=== PATIENT | male | born 1980 | race Caucasian/White ===

== ENCOUNTER 2022-01-30 06:25 | Observation (INO) ==
--- NOTE | 2022-01-13 12:38 | Anesthesiology Consultation ---
Date of Service January 13, 2022 Assessment & Plan (1) Encounter for pre-operative examination: - COVID screening: Per assessment on 01/13: No known COVID-19 positive contacts or current COVID-19 related symptoms. Travel screen negative. Surgeon arranging preop COVID testing. Awaiting results. - Check BSG AM DOS - S/P ACDF C6-7 (07/26/21): Glidescope #3, ETT 8.0 at [facility] Chart Review Chart Review: Acceptable Risk for Surgery and Patient NOT seen in Pre Admission Testing History Surgery Operation Date: 01/21/22 09:35 Proposed Procedures p C5-C6 Anterior Cervical Discectomy and Fusion, C6-C7 Hardware Removal, Spinal Cord Monitoring - Bradley Faustin, Height/Weight Height: 5 ft 8 in Weight: 85.275 kg Allergies Allergy/AdvReac Type Severity Reaction Status Date / Time Sulfa (Sulfonamide Allergy Intermediate Rash Verified 01/13/22 10:38 Antibiotics) Medications Home Medications Medication Instructions Recorded Confirmed Last Taken atorvastatin 20 mg tablet 20 mg PO PM 07/24/21 01/13/22 12/17/21 glimepiride 1 mg tablet 1 mg PO QAM 07/24/21 01/13/22 12/17/21 lisinopril 10 mg tablet 10 mg PO QAM 07/24/21 01/13/22 12/17/21 sitagliptin 50 mg-metformin 1,000 1 tab PO BID 07/24/21 01/13/22 12/17/21 08:00 mg tablet (Janumeелена) Past Medical History Medical History COVID-19 Dx 07/2021 (rapid test but f/u test was negative per pt) DM2 (diabetes mellitus, type 2) Lisinopril and atorvastatin preventatively HLD (hyperlipidemia) Right arm numbness Past Family History Family History Denies family history of Diabetes Heart disease Myocardial infarction Cancer Stroke Past Surgical History Surgical History H/O arthroscopic knee surgery H/O arthroscopy of shoulder History of arthroscopy R/L shoulders Hx of elbow surgery R/L ulnar nerve surgery S/P cervical spinal fusion ACDF C6-7 (07/26/21): Glidescope #3, ETT 8.0 at [facility] Turning to right side and head extension/flexion ROM limitations/significant cervicalgia* Social History Smoking Status: Never smoker Do You Dip or Chew Tobacco: No Hx Alcohol Use: No Hx Substance Use: No substance use type: does not use Lab Results Anesthesia Preop Results Results Anesthesia Widget: WBC 7.63 K/uL (4.8-10.8) 12/17/21 Hgb 18.2 g/dL (14.0-18.0) H 12/17/21 Hct 50.5 % (42-52) 12/17/21 Plt 204 K/uL (130-400) 12/17/21 Na 136 mmol/L (136-145) 12/17/21 K 3.9 mmol/L (3.5-5.1) 12/17/21 Cl 104 mmol/L (98-107) 12/17/21 CO2 23 mmol/L (21-32) 12/17/21 BUN 19 mg/dl (6-23) 12/17/21 Creat 1.20 mg/dl (0.6-1.4) 12/17/21 Glucose Level 153 mg/dl (70-99(Fasting)) H 12/17/21 Testing Electrocardiogram Date: 07/24/21 NSR at 75bpm. TWA, consider inferior ischemia. Echo done 07/24/21 for EKG changes was unremarkable. EKG/Echo was reviewed by Dr. Celaya prior to 07/26/21 ACDF which patient had done without issue* Chest X-Ray Date: 07/24/21 FINDINGS: Single frontal view of the chest demonstrates the cardiomediastinal silhouette to be within normal limits. The lungs are clear of alveolar opacities. There is no evidence for pleural effusion. There is no evidence for vascular congestion. There is no acute osseous pathology. IMPRESSION: No acute cardiopulmonary disease. Echocardiogram Date: 07/24/21 EF 55-60%. No regional motion abnormality. Borderline concentric LVH. No significant valvular disease. Cervical Spine Date: 12/24/[address] (12/24/20): Status post C6-C7 anterior discectomy and fusion. Hardware intact. No acute cervical spine fracture or subluxation. Reversal of the normal cervical lordosis. Otherwise, anatomic alignment of the cervical spine. Central canal and neural foramen better depicted on recent MRI. Cervical spine MRI (12/17/21): Prior discectomy with anterior plate and screw fusion at C6-C7. Mild uncovertebral hypertrophy and discogenic degeneration as above resulting in multilevel neural foraminal narrowing. No significant central canal stenosis. Normal signal of the cervical spinal cord. No abnormal enhancement.
[~2022-01-30 06:25] MED LIST: ACETAMINOPHEN 500 MG TAB PO SCH; GABAPENTIN 900 MG DOSE PO SCH; LACTATED RINGER'S 1,000 ML IV SCH; LR 15ML/HR IV SCH; ceFAZolin 2000MG 2,000 MG/15 ML SYR IV SCH
[2022-01-30] MEDS ORDERED: ATROPINE SULFATE 0.1 MG/ML 10ML SYR IV PRN (07:00)
[2022-01-30] MEDS ORDERED: HYDROmorphone INJ 1 MG/ML SYRINGE IV PRN ×2 (07:00→12:19)
[2022-01-30] MEDS ORDERED: PROMETHAZINE HCL 12.5 MG in SODIUM CHLORIDE 0.9% 50 ML IV PRN ×2 (07:00→12:19)
[2022-01-30] MEDS ORDERED: ONDANSETRON INJ 2 MG/ML 2 ML VIAL IV PRN ×2 (07:00→12:19)
[2022-01-30] MEDS ORDERED: LABETALOL HCL IV 5 MG/ML 20ML IV PRN (07:00)
[2022-01-30] MEDS ORDERED: ONDANSETRON INJ 2 MG/ML 2 ML VIAL ONE (07:09)
[2022-01-30] MEDS ORDERED: PROPOFOL IV EMULSION 10 MG/ML 20 ML VIAL IV ONE ×2 (07:09→08:20)
[2022-01-30] MEDS ORDERED: fentaNYL citrate 100 MCG/2 ML VIAL ONE (07:10)
[2022-01-30] MEDS ORDERED: MIDAZOLAM HCL 1 MG/ML 2ML VIAL ONE (07:13)
[2022-01-30] MEDS ORDERED: DEXAMETHASONE SOD INJ 4 MG/ML VIAL ONE (07:15)
[2022-01-30] MEDS ORDERED: LIDOCAINE 2% 2 ML VIAL/AMP(20MG/ML) INFIL ONE (07:15)
[2022-01-30] MEDS ORDERED: PROPOFOL IV EMULSION 10 MG/ML 100 ML VIAL IV ONE (07:15)
--- NOTE | 2022-01-30 07:27 | History & Physical Bridge Note ---
Date of Service January 30, 2022 History & Physical Bridge Note I have examined the patient, reviewed the History & Physical and in the interval since the performance of the History & Physical I have noted the following changes of clinical significance: no changes noted
--- NOTE | 2022-01-30 07:28 | History & Physical Report ---
Date of Service January 30, 2022 Assessment & Plan (1) Herniation of cervical intervertebral disc with radiculopathy: Plan: Anterior cervical discectomy and fusion C5-C6 hardware removal C6-C7 History of Present Illness Chief Complaint: Neck and arm pain with weakness Primary Care Provider: Rain Medina This is a 41-year-old male who presents with worsening right arm pain and weakness after failed course of nonoperative care is here for surgical invention. Allergies Allergy/AdvReac Type Severity Reaction Status Date / Time Sulfa (Sulfonamide Allergy Intermediate Rash Verified 01/30/22 06:47 Antibiotics) Home Medications Medication Instructions Recorded Confirmed Type atorvastatin 20 mg tablet 20 mg PO PM 07/24/21 01/30/22 History glimepiride 1 mg tablet 1 mg PO QAM 07/24/21 01/30/22 History lisinopril 10 mg tablet 10 mg PO QAM 07/24/21 01/30/22 History sitagliptin 50 mg-metformin 1,000 1 tab PO BID 07/24/21 01/30/22 History mg tablet (Janumet) Past Med/Surg History Medical History COVID-19 Dx 07/2021 (rapid test but f/u test was negative per pt) DM2 (diabetes mellitus, type 2) Lisinopril and atorvastatin preventatively HLD (hyperlipidemia) Right arm numbness Surgical History H/O arthroscopic knee surgery H/O arthroscopy of shoulder History of arthroscopy R/L shoulders Hx of elbow surgery R/L ulnar nerve surgery S/P cervical spinal fusion ACDF C6-7 (07/26/21): Glidescope #3, ETT 8.0 at [facility] Turning to right side and head extension/flexion ROM limitations/significant cervicalgia* Family History Denies family history of Diabetes Heart disease Myocardial infarction Cancer Stroke Social History Smoking Status: Never smoker Second Hand Exposure: No; Do You Dip or Chew Tobacco: No; Tobacco Cessation Education Requested by Patient: No Hx Alcohol Use: No Hx Substance Use: No Preferred Language: Albanian Communication Ability: Effective 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 current occupational status: employed current occupation: [employer] Other Information That Helps Us Care for You: No Feels Safe at Home: Yes Safety Concerns: Feels Safe At This Time Assistive Devices: None Physical Exam Physical Exam: Patient is alert and oriented Heart regular rhythm Lungs clear Results & Data Results & Data ([facility]) Vital Signs (Past 12 Hours) Vital Signs Temp Pulse Resp BP Pulse Ox 01/30/22 06:55 36.6 C 78 22 149/96 H 99
[2022-01-30] MEDS: ceFAZolin 330 MG/ML 1 GM VIAL ONE ×2 (08:01→08:36)
[2022-01-30] MEDS ORDERED: HYDROmorphone INJ 2 MG/ML SYR/VIAL ONE (08:07)
[2022-01-30] MEDS ORDERED: FLOSEAL HEMOSTATIC MATRIX 10ML TOP ONE (08:18)
[2022-01-30] MEDS ORDERED: SUCCINYLCHOLINE CHLORIDE 20 MG/ML 10 ML VIAL IV ONE (08:20)
[2022-01-30] MEDS ORDERED: ROCURONIUM BROMIDE 10 MG/ML 5 ML VIAL IV ONE (08:40)
[2022-01-30] MEDS ORDERED: GLYCOPYRROLATE 0.2 MG/ML VIAL ONE (09:17)
[2022-01-30] MEDS ORDERED: NEOSTIGMINE METHYLSULFATE 1 MG/ML 10ML VIAL ONE (09:17)
--- NOTE | 2022-01-30 09:37 | Operative Report ---
Post Operative Report Pre & Post Diagnosis Operation Date: 01/30/22 07:45 Pre-Op Diagnosis: Cervical spinal stenosis with radiculopathy Post-Op Diagnosis: Same I identified the patient and participated in the time-out.: Yes Procedure Operation Date: 01/30/22 07:45 Actual Procedures #1 removal of anterior cervical plate C6-C7. #2 exploration of fusion C6-C7. #3 anterior cervical discectomy with bilateral foraminotomies C5-C6. #4 anterior cervical arthrodesis C5-C6. #5 placement of 8 mm spiral cage filled with I factor at C5-C6. #6 application of tamayo plate and screws from C5-C7. Surgeon Bradley Faustin, DO Human Resources Compliance Manager Mildred Hernandez Estimated Blood Loss 20 Findings Consistent with Post-Op Diagnosis Specimens None Indications This is a 41 old male known to me presents with marked decline in status and neuro deficit involving the right upper extremity. Failing course of nonoperative care is here for the above-mentioned procedure. Description of Procedure Patient was met with identified informed consent obtained. Patient was then taken to the operative suite underwent ablation placed in the supine position the Deniz table on top of the Eric frame. All bony prominences well-padded eyes inspected to ensure no external pressure placed upon him. This point the anterior cervical spine was prepped and draped in normal sterile fashion. Utilizing the same incision site along the right anterior aspect the cervical spine sharp dissection formed through the skin and blunt dissection with assistance of bipolar electrocautery performed down to and exposing the anterior cervical spine from C5-C7. I exposed the anterior cervical plate at C6-C7. I remove the plate without difficulty. I then placed [place] distracting pins into C6 and C7 to distract across the interbody construct. [place] no motion was noted. It appeared to be a solid fusion. I then proceeded to C5-C6. A complete discectomy was then performed up to the uncovertebral's bilaterally. [place] distracting pins were utilized to assist in visualization. Removed all posterior fibers longitudinal ligament bilateral foraminotomies performed. The endplates were then burred to subcortical any bone and an 8 mm spiral cage filled with I factor tapped in position. Distracting apparatus was removed. All all anterior aspects burred to smooth cortical surface and a tamayo plate and screws applied with the assistance of fluoroscopy. The incision was then copiously irrigated explored to ensure no damage to surrounding structures or remaining bleeding. 10 round KATYA drain was then inserted. Incision was then closed with 2 Vicryl in a fashion of 4 Monocryl for final skin closure. Steri- Strip sterile dressings placed. Patient waken taken to PACU stable condition. Please note spinal cord monitoring was utilized at the procedure no changes noted. Lastly Mildred Hernandez was present at the entire surgery involved the patient positioning complex portions of the surgery and fascial closure. I attest to the content of the Intraoperative Record and any orders documented therein. Any exceptions are noted below.
--- NOTE | 2022-01-30 10:41 | Fluoroscopy Report ---
FL cervical 2-3V CLINICAL HISTORY: ACDF C5-6 REMOVE HARDWARE C6-7 COMPARISON STUDY: CT of the cervical spine December 24, 2021. FLUOROSCOPY TIME: 8 seconds. FLUOROSCOPIC IMAGES: 3 FINDINGS: Interval C5-C6 discectomy with interbody spacer placement is noted. Anterior plate and scre ws from C5 through C7 are noted. Previous C6-C7 discectomy is present. Surgical drain is in place. En dotracheal tube is partially imaged. IMPRESSION: Fluoroscopy provided during hardware removal with interval C5-C6 discectomy and C5-C7 an terior plate and screw fixation. ACT 112: Negative or not required by law. Electronically signed by: Mina Luna M.D. 01/30/2022 10:40 AM
--- NOTE | 2022-01-30 11:37 | Anesthesiology Progress Note ---
Date of Service January 30, 2022 Anesthesia Post Procedure Vital Signs Vital Signs: Temp Pulse Pulse Resp BP Pulse Ox 01/30/22 11:30 86 12 141/92 H 97 01/30/22 11:20 36.4 C L 76 12 166/96 H 98 01/30/22 11:10 74 10 L 155/104 H 98 01/30/22 11:00 82 21 153/102 H 98 01/30/22 10:50 85 16 167/103 H 96 01/30/22 10:40 36.2 C L 82 12 163/97 H 96 01/30/22 10:30 80 16 164/104 H 100 01/30/22 10:20 73 12 160/97 H 100 01/30/22 10:10 86 16 119/95 97 01/30/22 10:04 36.3 C L 82 13 179/121 H 99 01/30/22 06:55 36.6 C 78 22 149/96 H 99 Pain Intensity Right Neck: Pain Intensity: 6 Transfer of Care Handoff Completed per policy Notes Mental Status: alert / awake / arousable Patient Amnestic to Procedure: Yes Nausea / Vomiting: adequately controlled Pain: adequately controlled Airway Patency, RR, SpO2: stable & adequate BP & HR: stable & adequate Hydration State: stable & adequate Anesthetic Complications: no major complications apparent
[2022-01-30] MEDS ORDERED: ONDANSETRON 4 MG OD TAB PO PRN (12:19)
[2022-01-30] MEDS ORDERED: SODIUM CHLORIDE 0.9% 1000ML 1,000 ML IV SCH (12:19)
[2022-01-30] MEDS ORDERED: ACETAMINOPHEN 1,000 MG/100 ML VIAL IV PRN (12:19)
[2022-01-30] MEDS ORDERED: HYDROmorphone INJ 0.5 MG/0.5 ML SYR IV PRN (12:19)
[2022-01-30] MEDS ORDERED: oxyCODONE HCL IR 5 MG TAB (IMMEDIATE RELEASE) PO PRN (12:19)
[2022-01-30] MEDS ORDERED: DO NOT ADMINISTER FLU VACCINE PRN (12:19)
[2022-01-30] MEDS ORDERED: diphenhydrAMINE Capsule 25 MG CAP PO PRN (12:19)
[2022-01-30] MEDS ORDERED: LORazepam 0.5 MG in SYRINGE 0.25 ML IV PRN (12:19)
[2022-01-30] MEDS ORDERED: hydrOXYzine HCl 25 MG TAB PO PRN (12:19)
[2022-01-30] MEDS ORDERED: LORazepam 0.5 MG TAB PO PRN (12:19)
[2022-01-30] MEDS ORDERED: PHARMACY GLYCEMIC MGMT CONSULT PRN (12:19)
[2022-01-30] MEDS ORDERED: bisacodyL 10 MG SUPP PR PRN (12:19)
[2022-01-30] MEDS ORDERED: ALUMINUM/MAGNESIUM SUSP 30 ML UDC PO PRN (12:19)
[2022-01-30] MEDS ORDERED: RACEPINEPHRINE 2.25% NEBU SOLN 0.5 ML VIAL INH PRN (12:19)
[2022-01-30] MEDS ORDERED: dexAMETHasone 8 MG in SYRINGE 0 ML IV PRN (12:19)
[2022-01-30] MEDS ORDERED: NALOXONE HCL 0.4 MG/1 ML VIAL/CARP IV PRN (12:19)
[2022-01-30] MEDS ORDERED: FAMOTIDINE 20 MG TAB PO PRN (12:19)
[2022-01-30] MEDS ORDERED: METOCLOPRAMIDE HCL INJ 5 MG/ML 2 ML VIAL IV PRN (12:19)
[2022-01-30] MEDS ORDERED: MAGNESIUM HYDROXIDE SUSP 30 ML UDC PO PRN (12:19)
[2022-01-30] MEDS ORDERED: traMADol HCL 50 MG TABLET PO PRN (12:19)
[2022-01-30] MEDS ORDERED: DO NOT ADMINISTER PNEUMOCOCCAL VACCINE PRN (12:19)
[2022-01-30] MEDS ORDERED: SOD PHOSPHATE/SOD BIPHOSPHATE ENEMA 132 ML BTL PR PRN (12:19)
[2022-01-30] MEDS ORDERED: DEXTROSE 50% 50 ML SYRINGE IV PRN (12:45)
[2022-01-30] MEDS ORDERED: CARBOHYDRATES FOR HYPOGLYCEMIA PO PRN (12:45)
[2022-01-30] MEDS ORDERED: INSULIN HUMAN NPH SC ONE (12:45)
[2022-01-30] MEDS ORDERED: GLUCOSE 10 TABS/TUBE PO PRN (12:45)
[2022-01-30] MEDS ORDERED: GLUCOSE 40% GEL 15 GM TUBE PO PRN (12:45)
[2022-01-30] MEDS ORDERED: GLUCAGON FOR INJ 1 MG VIAL IM PRN (12:45)
[2022-01-30] MEDS ORDERED: LANTUS PER UNIT CHARGE SQ ONE (13:00)
[2022-01-30] MEDS ORDERED: INSULIN ASPART PER UNIT SC SCH (13:00)
--- NOTE | 2022-01-30 13:03 | Pharmacy Report ---
Pharmacy Glycemic Short Note 2 - Date of Service January 30, 2022 - Glycemic Short BSG Results (Last 24 hours): 01/30/22 01/30/22 01/30/22 06:43 10:18 12:13 POC Glucose 125 H 138 H 162 H OUTPATIENT ANTIDIABETIC REGIMEN: * Janumet 50-1000 mg PO BIDM * Glimepiride 1 mg PO daily HbA1c: 6.1% (07/25/21) ASSESSMENT: * MP is a 41 year old male POD #0 s/p discectomy/fusion * Received 8 mg IV dexamethasone in OR * Ordered dexamethasone 6 mg IV daily ongoing to start tomorrow morning * Well-controlled T2DM with oral medications * Preop BSG of 125 mg/dL and postop BSG of 162 mg/dL * Given uptrend in BSG, will give aggressive Novolog in addition to basal to cover steroid PLAN FOR INPATIENT GLYCEMIC CONTROL: * Hold outpatient oral diabetes medications * Basal insulin * NPH 25 units SC x 1 to cover intra-operative steroids (~0.3 unit/kg) * Bolus insulin * NovoLog per scale ACHS or Q6hrs while NPO * Goal Range: Low 110 mg/dL - High 140 mg/dL * Correction Factor: 20 mg/dL/unit * Nutritional / Prandial insulin per carb ratio of 1 unit per 6 grams CHO consumed
[2022-01-30] MEDS: INSULIN ASPART PER UNIT SC SCH ×3 (13:57→21:16)
[2022-01-30] MEDS ORDERED: lisinopril 10 MG TAB PO STA (15:14)
[2022-01-30] MEDS: ceFAZolin 2000MG 2,000 MG/15 ML SYR IV SCH ×2 (17:16→23:11)
[2022-01-30] MEDS ORDERED: ATORVASTATIN 20 MG TAB PO SCH (21:00)
[2022-01-30] MEDS ORDERED: DOCUSATE SODIUM/SENNA 50/8.6MG TAB PO SCH (21:00)
[2022-01-31] MEDS ORDERED: COUGH DROP (SUGAR FREE) LOZ 24 LOZ/1 BOX BUCCAL ONE (04:00)
[2022-01-31] MEDS: ACETAMINOPHEN 500 MG TAB PO PRN ×2 (04:02→13:24)
[2022-01-31] MEDS: POLYETHYLENE (MIRALAX) 17 GM PACK PO SCH ×2 (05:30→12:14)
[2022-01-31] MEDS: INSULIN ASPART PER UNIT SC SCH (08:43)
[2022-01-31] MEDS ORDERED: GLIMEPIRIDE 2 MG TAB PO SCH (09:00)
[2022-01-31] MEDS ORDERED: lisinopril 10 MG TAB PO SCH (09:00)
[2022-01-31] MEDS ORDERED: INSULIN HUMAN NPH SC ONE ×2 (09:00→09:15)
[2022-01-31] MEDS ORDERED: dexAMETHasone 6 MG in SYRINGE 0 ML IV SCH (09:00)
--- NOTE | 2022-01-31 10:06 | Discharge Summary ---
Date of Service January 31, 2022 Admission HPI Per Admitting Provider This is a 41-year-old male who presents with worsening right arm pain and weakness after failed course of nonoperative care is here for surgical invention. Principal Diagnosis Cervical disc condition with radiculopathy Discharge Data Allergies Allergy/AdvReac Type Severity Reaction Status Date / Time Sulfa (Sulfonamide Allergy Intermediate Rash Verified 01/30/22 06:47 Antibiotics) Procedures Performed Operation Date: 01/30/22 07:45 Actual Procedures p C5-C6 Anterior Cervical Discectomy and Fusion, Spinal Cord Monitoring(Not Applicable) - Bradley Faustin DO s C6-C7 Hardware Removal(Not Applicable) - Bradley Faustin DO Ordered Studies 01/30/22 07:45 FL cervical 2-3V Routine Hospital Course (1) Cervical radiculopathy: Patient underwent anterior cervical discectomy and fusion tolerated this well was taken to orthopedic for postoperative. Postop day 1 he was swallowing well. No hoarseness. Arm symptoms markedly improved KATYA drain decreasing appropriately. Subsequently discharged home. Discharge orders instructions from the chart for further review. Total Time Total Time Spent Total Time Spent (In Minutes): 20 minutes Discharge Plan Discharge Items Patient Disposition: Home - Self-Care Reason For Visit: Spinal Stenosis, Cervical Region Discharge Diagnosis: Cervical spinal stenosis with radiculopathy Activity: As commented below Non-emergency contact: Primary Care Provider Call non-emergency contact if: you have any medication questions Follow-up/Referrals: Rain Medina D.O. [Primary Care Provider] - Diet: Regular Addtl Attending Provider Instructions: ACTIVITY RECOMMENDATIONS: SELF CARE INSTRUCTIONS AFTER CERVICAL FUSIONS 1. No smoking. Smoking drastically decreases the chance of a solid fusion. 2. No bending, lifting more than 5 pounds, or twisting (roll like a log when turning in bed). 3. You may shower 3 days after surgery. Thoroughly dry wound. Do not soak in the tub. 4. Cervical collar: Must be worn at all times including sleeping. You may remove the brace only to bath, eat and if you are sitting in a recliner. 5. Please walk as much as you can for exercise. Gradually increase the distance that you walk as your endurance increases. SPECIAL CARE INSTRUCTIONS: VERY IMPORTANT TO READ AND REVIEW A. Do not take any anti-inflammatory medications (i.e. Indocin, Advil, Aspirin, Naprosyn, Aleve, Motrin, etc.) as these may inhibit the chance of a solid fusion. Tylenol is okay to take. B. Your surgical incision has been closed with a cosmetic suture under the skin that will dissolve in about 6 weeks. In 14 days, you can use a pair of clean scissors and cut the suture that is left outside of the skin at the ends of your incision. C. Complications are uncommon, but please contact us if you have any signs or symptoms of: 1. wound infection (fever higher than 102.5 degrees F, redness, separation of wound, drainage, or increasing pain from the incision) 2. blood clots in legs (pain, swelling, redness and warmth in legs) 3. urinary tract infection (fever higher than 102.5 degrees, burning upon urination or increased frequency of urination) 4. nerve problems (inability to walk on your toes or heels, numbness, loss of bowel or bladder control) 5. any other symptoms that concern you. D. Please call the office at if you have any concerns or questions about your operation or recovery. MANAGING PAIN AFTER SPINAL SURGERY 1. Narcotic medication is intended for short-term use and will be provided for surgical pain. Surgical pain usually lasts for a period of 4-6 weeks. Narcotic medication includes Percocet, Vicodin, Darvocet, Tylenol #3 or Lortab. 2. Longer-term pain is more appropriately treated with non-narcotic medication such as Tylenol ES. 3. Muscle spasm is not appropriately treated with narcotics. Muscle relaxers such as Soma, Flexeril or Skelaxin can be used along with Tylenol ES. 4. Remember that we all live with some "aches and pains". This is not unusual or uncommon after an injury or as we get older. 5. We will provide appropriate medication within the normal guidelines of their prescribed use. We will also be very cautious and aware of potential abuse and extended duration of patients' medication needs. 6. Please allow 2-3 days to process refills. Prescriptions will not be mailed but must be picked up at the office. FOLLOW UP VISIT: Keep your scheduled follow-up appointment. Any questions, please call the office at . Pending Studies at Discharge: No Stand-Alone Forms: [facility], Smoking Cessation Medications and DC Order Prescriptions: New tramadol 50 mg tablet 50 mg PO Q6H PRN (Reason: pain, moderate) Qty: 20 RF: 0 oxycodone 5 mg tablet 5 mg PO Q6H PRN (Reason: pain, severe) Qty: 20 RF: 0 Continued atorvastatin 20 mg tablet 20 mg PO PM RF: 0 glimepiride 1 mg tablet 1 mg PO QAM RF: 0 lisinopril 10 mg tablet 10 mg PO QAM RF: 0 Janumet 50-1,000 mg tablet 1 tab PO BID RF: 0 Discharge Orders: Discharge Order (Routine); Ordered 01/31/22 Ordered By: Bradley Faustin Admission Data Admit Date/Time: 01/30/22 09:40 Attending Provider: Bradley Faustin Admit Provider: Bradley Faustin Primary Care Provider: Rain Medina
== END 2022-01-31 14:41 | disposition home or self-care (01) ==
LOC: ASU 06:25 → 3E 09:40 → INTOOBSV 09:40